=== PATIENT | male | born 1930 | race Caucasian/White ===

== ENCOUNTER → 2017-01-24 | Outpatient (CLI) | payer MEDICARE, OTHER ==
[~2017-01-24] MED LIST: LOPRESSOR PO; PRILOSEC PO; ZOCOR PO
--- NOTE | ~2017-01-24 | CT55 ---
[facility] A Service of [facility] RADIOLOGY TEXT RESULTS PATIENT: MARY KIM LOCATION: [facility] : 30 UNIT #: [id number] AGE: [address]: SID JULIAN MD SEX: M ORDER DR: [id number] [place] [id number] O MR#: [id number] Acc #: [id number] NAME: MARY KIM : 1930 SEX: M STUDY DATE/TIME: 01/24/2017 10:47 UNIT: [facility] ROOM: STUDY DESCRIPTION: CT Chest W Con Attending Physician: Becka Julian M.D. Referring Physician: Becka Julian M.D. Ordering Physician: Rishi Crockett Primary Care Physician: Becka Julian M.D. MEDICAL IMAGING REPORT This report is preliminary unless electronic signature is present. EXAM CT chest with contrast INDICATION Cough for the past 2 weeks. PROCEDURE Contrast-enhanced CT of the chest, 100 mL of Isovue-370. COMPARISON None TECHNIQUE This CT exam was performed with one or more of the following radiation dose reduction techniques: automatic exposure control, adjustment of mA and/or kV according to patient size, and iterative reconstruction. FINDINGS There is diffuse interstitial coarsening throughout both lungs. No large areas of honeycombing. There may be a few areas of honeycombing, particularly in the lateral left upper lobe and right upper lobe. No dense consolidation, effusion or pneumothorax. No adenopathy. Previous CABG. No acute findings in the included upper abdomen. No aggressive appearing bone lesion. IMPRESSION 1. 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 2. No dense consolidation to suggest superimposed pneumonia. Dictated by... Chip Stanford M.D. [facility] A Service of [facility] RADIOLOGY TEXT RESULTS PATIENT: MARY KIM LOCATION: [facility] : 30 UNIT #: [id number] AGE: [address]: SID JULIAN MD SEX: M ORDER DR: THIS IS AN ELECTRONICALLY VERIFIED REPORT Chip Stanford M.D. at 01/26/2017 7:14 AM Alvaro TD: 01/24/2017 15:53 JOB #: [id number] MEDICAL IMAGING REPORT Page 1 of 1
[2017-01-24 10:45] LABS: POC - CREATININE 1.35 mg/dL (0.64-1.27)
== END | disposition home or self-care (01) ==
LOC: SCT 10:25
PROVIDERS: Family Medicine
DX: J18.1 Lobar pneumonia, unspecified organism (principal); R91.8 Other nonspecific abnormal finding of lung field
CPT/HCPCS: 71260; 82565; Q9967